=== PATIENT | male | born 1980 | race Caucasian/White ===

== ENCOUNTER 2017-01-08 09:13 | Emergency (ER) | payer OTHER ==
[~2017-01-08] VITALS: Ht 182.9 cm; Wt 112.0 kg
[2017-01-08] MEDS ORDERED: KETOROLAC 30 MG/1 ML IM ONE (10:00)
[2017-01-08 10:14] LABS: HEMOGLOBIN 14.2 g/dL (13.7-18.0)
[2017-01-08] MEDS ORDERED: KETOROLAC 30 MG/1 ML ONE (10:14)
[2017-01-08 10:27] LABS: BLOOD UREA NITROGEN 14 mg/dL (7-18)
[2017-01-08 10:37] LABS: IS PT STATUS REG ER OR PRE ER? YES
[2017-01-08] MEDS ORDERED: OMNIPAQUE 350 MG/ML, 100ML BOTTLE ONE (10:59)
[2017-01-08 11:16] VITALS: BP 133/90
== END 2017-01-08 11:33 | disposition home or self-care (01) ==
LOC: ED 09:59
DX: R07.89 Other chest pain (principal); S80.11XA Contusion of right lower leg, initial encounter; X58.XXXA Exposure to other specified factors, initial encounter; Y93.89 Activity, other specified; Y99.8 Other external cause status; Y92.89 Other specified places as the place of occurrence of the external cause
CPT/HCPCS: 36415; 71275; 80048; 82040; 84484; 85025; 85610; 85730; 93005; 93971; 96372; 99285; J1885; Q9967